=== PATIENT | female | born 1995 | race African-American/Black ===

== ENCOUNTER 2016-12-15 16:46 | Emergency (ER) | payer OTHER ==
[2016-12-15 17:04] VITALS: TEMP 98; BMI 29.5
[2016-12-15 17:23] LABS: LEUKOCYTES/URINE NEG (NEGATIVE); NITRITE/URINE NEG (NEGATIVE); RBC/URINE 0-2 (0-5); URINE OCCULT BLOOD NEG (NEG/TRACE); WBC/URINE 0-2 (0-5)
[2016-12-15] MEDS ORDERED: SODIUM CHLORIDE 0.9% 3 ML FLUSH FLUSH PRN (17:25)
[2016-12-15] MEDS ORDERED: NS 1,000 ML IV ONE ×2 (17:25)
--- NOTE | 2016-12-15 17:27 | EDPRACDOC ---
- General Information Information Source: Patient Mode Of Arrival: Car - History of Present Illness Onset: 2 days Pain Location: Reports: LLQ, Suprapubic, Flank (LT) Pain Context: Reports: Spontaneous Pain Severity: Mild Pain Quality: Reports: Aching, Sharp Pain Radiation: Reports: Flank (LT FLANK) Last Menstrual Period: now : (unk) Control Method: Reports: None Blood Type: Unknown Modifying Factors: improves with: Nothing Female Associated Signs & Symptoms: Reports: Nausea, Diarrhea (1-2 EPISODES) Oral Intake: Normal Urinary Output: Normal <Irwin Gambino - Last Filed: 12/15/16 18:03> <Valerie Bazan - Last Filed: 12/15/16 18:20> - General Information Chief Complaint: Abdominal Pain Stated Complaint: ABD PAIN Time Seen by Provider: 12/15/16 17:20 Home Medications: Home Medications Ibuprofen 800 mg PO Q8H PRN #20 tablet 12/15/16 Allergies/Adverse Reactions: Allergies Allergy/AdvReac Type Severity Reaction Status Date / Time diphenhydramine HCl Allergy Intermediate Itching Verified 12/15/16 17:00 [From Benadryl] fluoxetine HCl [From Prozac] Allergy Intermediate Itching Verified 12/15/16 17: 00 morphine Allergy Intermediate Itching Verified 12/15/16 17:00 - History of Present Illness HPI: PT PRESENTS TO ED WITH LOWER ABD PAIN VAGINAL BLEEDING FOR 2 DAYS STATES SHE HAD NORMAL MENSTRUAL CYCLE AND STOPPED NORMALLY BUT THEN STARTED BACK AND HAVING INCREASED PAIN AND NAUSEA WITH 1-2 EPISODES OF DIARRHEA. (Irwin Gambino) ED Past Medical History - History Reviewed Yes Nurses notes reviewed and agree except as marked Travel Outside of [place] in the Last 3 Months?: No No Past Medical History: Yes Patient has no past medical history - Patient Medical History Psychological History: Reports: Depression, Anxiety Systemic History: Reports: Diabetes (HYPOGLYCEMIA) Surgical History: Reports: Other (ORAL) - Social Medical History Smoking Status: Never smoker ETOH: None Substance Abuse: None Lives With: Other Lives In: Home <Irwin Gambino - Last Filed: 12/15/16 18:03> EDM Review of Systems - Review of Systems ROS Negative Except as Marked: Yes All systems reviewed and were negative except as marked Constitutional: No Symptoms Reported. negative: Fever, Chills, Weakness, Fatigue, Loss of Appetite Eyes: No Symptoms Reported. negative: Redness, Blurred Vision, Double Vision, Discharge, Pain, Light Sensitive, Photophobia Ears: No Symptoms Reported. negative: Pain, Hearing Loss, Drainage, Ear Pulling Throat: No Symptoms Reported. negative: Pain, Swelling Nose: No Symptoms Reported. negative: Congestion, Bleeding, Discharge, Injection, Swelling, Deformity, Ecchymosis, Tender, Abrasion, Laceration Mouth: No Symptoms Reported. negative: Pain, Drooling Respiratory: No Symptoms Reported. negative: Cough, Brassy Cough, Barky Cough, Shortness of Breath, Wheezing, Hemoptysis Cardiovascular: No Symptoms Reported. negative: Chest Pain, Palpitations, Syncope, Edema, Orthopnea, PND, Skin Mottling, Cyanosis Gastrointestinal: Diarrhea (1-2 EPISODES), Nausea, Pain. negative: Constipation , Formula Intolerance, Melena, Vomiting Genitourinary: Flank Pain (LEFT), Vaginal Bleeding. negative: Bleeding, Dysuria , Discharge, Frequency, Hematuria, , Testicular Pain Neurological: No Symptoms Reported. negative: Headache, Dizziness, Seizure, Numbness, Weakness, Speech Difficulty, Gait Difficulty Musculoskeletal: No Symptoms Reported. negative: Neck, Chestwall, Ribs, Back, Shoulder, Arm, Elbow, Forearm, Wrist, Hand, Pelvis, Hip, Femur, Knee, Leg, Ankle , Foot Integumentary: No Symptoms Reported. negative: Itching, Rash, Bruising, Wound Allergic/Immunologic: No Symptoms Reported. negative: Hives, Itching Hematologic: No Symptoms Reported. negative: Lymphadenopathy, Easy Bruising, Easy Bleeding Endocrine: No Symptoms Reported. negative: Weight Gain, Weight Loss Psychiatric: No Symptoms Reported. negative: Anxiety, Depression, Hallucinations, Insomnia, Suicidal <Irwin Gambino - Last Filed: 12/15/16 18:03> - Physical Exam Constitutional: No apparent distress, Alert (Awake) Oriented to: Time, Person, Place - HEENT Head: Normal ( normocephalic) Eye Exam: Normal (PERRL, EOMI, Sclera white) Oropharynx: Normal (Pharynx:Moist without exudate,Gums-no swelling) Tympanic Membrane: Normal ENT EAC: Normal TMJ: Normal Nose: No Symptoms Reported (septum midline) Neck: Normal (FROM, trachea at midline) - Respiratory/Cardiovascular Respiratory: Normal - CTA (BBS clear to auscultation without adventitious sounds ) Cardiovascular: Normal (RRR without murmur, gallop or rub) - GI Auscultation: Normal (NABS) Palpation: Normal (Soft,No rebound or guarding, non distended) Tenderness: Mild, LUQ, LLQ, Suprapubic Post's Sign: Negative - Bladder: Normal External: Normal Vagina: Blood Cervix: Blood Uterus: Normal size Adnexa: Bilateral: Normal - Musculoskeletal Back: Normal (Non-Tender) Extremities: Normal (Normal tone, Pulses 2+ No cyanosis or edema, FROM) - Integumentary Skin: Normal, Warm, Dry Lymphatics: Normal (no adenopathy) - Neurologic Memory Impaired: Normal Motor Function: Normal (Normal tone, Pulses 2+ No cyanosis or edema, FROM) Cranial Nerve: Normal (CN II-X11 intact sensation, strength 5/5) Cerebellar: Normal Mood Description: Normal Perception: Normal <Irwin Gambino - Last Filed: 12/15/16 18:03> - Differential Diagnosis UTI, Other (, CERVICITIS, DUB, PID) - Results 12/15/16 17:46 12/15/16 17:46 <Irwin Gambino - Last Filed: 12/15/16 18:03> - Re-evaluation Re-evaluation 1 Re-evaluation Time: 18:18 (IMPROVED) - Results 12/15/16 17:46 12/15/16 17:46 <Valerie Bazan - Last Filed: 12/15/16 18:20> - Results WBC 10.1 xk/uL (3.8-10.8) 12/15/16 17:46 RBC 4.17 xM/uL (4.20-5.40) L 12/15/16 17:46 Hgb 12.5 g/dL (12.0-16.0) 12/15/16 17:46 Hct 37.1 % (36-47) 12/15/16 17:46 MCV 89 fL (81-99) 12/15/16 17:46 MCH 29.9 pg (27-32) 12/15/16 17:46 MCHC 33.6 g/dl (33-36) 12/15/16 17:46 RDW 13.5 % (11.5-14.5) 12/15/16 17:46 Plt Count 291 xk/uL (130-400) 12/15/16 17:46 MPV 9.9 fL (7.4-10.4) 12/15/16 17:46 Neut % (Auto) 60.3 % (45-76) 12/15/16 17:46 Lymph % (Auto) 31.5 % (17-44) 12/15/16 17:46 [place] % (Auto) 6.3 % (3-10) 12/15/16 17:46 Eos % (Auto) 0.5 % (0-5) 12/15/16 17:46 Baso % (Auto) 1.4 % (0-2) 12/15/16 17:46 Absolute Neuts (auto) 6.06 xk/uL (1.7-8.2) 12/15/16 17:46 Absolute Lymphs (auto) 3.13 xk/uL (0.65-4.75) 12/15/16 17:46 Sodium 139 mEq/L (137-146) 12/15/16 17:46 Potassium 3.7 mEq/L (3.5-5.1) 12/15/16 17:46 Chloride 101 mEq/L (98-107) 12/15/16 17:46 Carbon Dioxide 29 mMOL/L (22-33) 12/15/16 17:46 Anion Gap 13 mEq/L (8-16) 12/15/16 17:46 BUN 16 MG/DL (7-17) 12/15/16 17:46 Creatinine 0.80 MG/DL (0.52-1.04) 12/15/16 17:46 Estimated GFR (MDRD) > 60 mL/min (>=60) 12/15/16 17:46 Glucose 91 mg/dL (70-99) 12/15/16 17:46 Calculated Osmolality 269 MOs/Kg (270-290) L 12/15/16 17:46 Calcium 9.0 MG/DL (8.4-10.2) 12/15/16 17:46 Total Bilirubin 0.3 MG/DL (0.2-1.3) 12/15/16 17:46 AST 24 IU/L (14-36) 12/15/16 17:46 ALT 24 IU/L (9-52) 12/15/16 17:46 Alkaline Phosphatase 97 IU/L (38-126) 12/15/16 17:46 Total Protein 7.9 G/DL (6.3-8.2) 12/15/16 17:46 Albumin 4.4 G/DL (3.5-5.0) 12/15/16 17:46 Urine Color Yellow 12/15/16 17:05 Urine Clarity Clear 12/15/16 17:05 Urine pH 7.0 (5.0-8.0) 12/15/16 17:05 Ur Specific [place] 1.015 (1.003-1.035) 12/15/16 17:05 Urine Protein Neg (NEG/TRACE) 12/15/16 17:05 Urine Glucose (UA) Neg (NEGATIVE) 12/15/16 17:05 Urine Ketones Neg (NEGATIVE) 12/15/16 17:05 Urine Occult Blood Neg (NEG/TRACE) 12/15/16 17:05 Urine Nitrite Neg (NEGATIVE) 12/15/16 17:05 Urine Bilirubin Neg (NEGATIVE) 12/15/16 17:05 Urine Urobilinogen <2.0 MG/DL (0-1) 12/15/16 17:05 Ur Leukocyte Esterase Neg (NEGATIVE) 12/15/16 17:05 Urine RBC 0-2 (0-5) 12/15/16 17:05 Urine WBC 0-2 (0-5) 12/15/16 17:05 Ur Epithelial Cells 1+ 12/15/16 17:05 Urine Bacteria Few (NEG/FEW) 12/15/16 17:05 Urine Mucus Occ (NEG/OCC) 12/15/16 17:05 Urine Test Neg (NEGATIVE) 12/15/16 17:05 Microbiology 12/15/16 17:35 YANIRA Preparation - Final Vaginal 12/15/16 17:35 Trichomonas Wet Mount - Final Vaginal Lab Results 12/15/16 12/15/16 12/15/16 17:46 17:46 17:05 WBC 10.1 RBC 4.17 L Hgb 12.5 Hct 37.1 MCV 89 MCH 29.9 MCHC 33.6 RDW 13.5 Plt Count 291 MPV 9.9 Neut % (Auto) 60.3 Lymph % (Auto) 31.5 [place] % (Auto) 6.3 Eos % (Auto) 0.5 Baso % (Auto) 1.4 Absolute Neuts (auto) 6.06 Absolute Lymphs (auto) 3.13 Sodium 139 Potassium 3.7 Chloride 101 Carbon Dioxide 29 Anion Gap 13 BUN 16 Creatinine 0.80 Estimated GFR (MDRD) > 60 Glucose 91 Calculated Osmolality 269 L Calcium 9.0 Total Bilirubin 0.3 AST 24 ALT 24 Alkaline Phosphatase 97 Total Protein 7.9 Albumin 4.4 Urine Color Yellow Urine Clarity Clear Urine pH 7.0 Ur Specific [place] 1.015 Urine Protein Neg Urine Glucose (UA) Neg Urine Ketones Neg Urine Occult Blood Neg Urine Nitrite Neg Urine Bilirubin Neg Urine Urobilinogen <2.0 Ur Leukocyte Esterase Neg Urine RBC 0-2 Urine WBC 0-2 Ur Epithelial Cells 1+ Urine Bacteria Few Urine Mucus Occ Urine Test 12/15/16 17:05 WBC RBC Hgb Hct MCV MCH MCHC RDW Plt Count MPV Neut % (Auto) Lymph % (Auto) [place] % (Auto) Eos % (Auto) Baso % (Auto) Absolute Neuts (auto) Absolute Lymphs (auto) Sodium Potassium Chloride Carbon Dioxide Anion Gap BUN Creatinine Estimated GFR (MDRD) Glucose Calculated Osmolality Calcium Total Bilirubin AST ALT Alkaline Phosphatase Total Protein Albumin Urine Color Urine Clarity Urine pH Ur Specific [place] Urine Protein Urine Glucose (UA) Urine Ketones Urine Occult Blood Urine Nitrite Urine Bilirubin Urine Urobilinogen Ur Leukocyte Esterase Urine RBC Urine WBC Ur Epithelial Cells Urine Bacteria Urine Mucus Urine Test Neg (Irwin Gambino) (Valerie Bazan) - Departure Disposition: Home Education/Counseling Given To: Patient Education/Counseling Given Regarding: Diagnosis, Treatment, Prognosis, Follow Up <Irwin Gambino - Last Filed: 12/15/16 18:03> Decision Time to Discharge: 18:18 - Departure Yes I personally saw and evaluated the patient. <Valerie Bzaan - Last Filed: 12/15/16 18:20> - Departure Condition: Stable Final Diagnosis: Vaginal bleeding, Menorrhagia Instructions: Menorrhagia (ED) Referrals: Rusty Delgado MD [Staff Physician] - One Week None,No Provider [Primary Care Provider] - One Week Prescriptions: New Ibuprofen 800 mg PO Q8H PRN #20 tablet PRN Reason: Pain
[2016-12-15 17:58] LABS: AUTOMATED BASOPHIL 1.4 % (0-2); AUTOMATED EOSINOPHIL 0.5 % (0-5); AUTOMATED LYMPH 31.5 % (17-44); AUTOMATED MONOCYTE 6.3 % (3-10); AUTOMATED NEUTROPHIL 60.3 % (45-76); MPV 9.9 fL (7.4-10.4)
[2016-12-15] MEDS ORDERED: SODIUM CHLORIDE 0.9% 3 ML FLUSH FLUSH SCH (18:00)
[2016-12-15 18:07] LABS: BLOOD UREA NITROGEN 16 MG/DL (7-17); CALCULATED OSMOLALITY 269 MOs/Kg (270-290); CHLORIDE 101 mEq/L (98-107); GLUCOSE 91 mg/dL (70-99); SODIUM LEVEL 139 mEq/L (137-146); TOTAL PROTEIN 7.9 G/DL (6.3-8.2)
[2016-12-15 18:55] VITALS: BP 131/67; PULSE 78
[2016-12-16 21:41] LABS: CHLAMY BY NUCLEIC ACID AMP Negative (Negative)
[2016-12-17 08:32] LABS: GC BY NUCLEIC ACID AMP Negative (Negative)
== END 2016-12-15 18:57 | disposition home or self-care (01) ==
LOC: ED 16:46
DX: N92.0 Excessive and frequent menstruation with regular cycle (principal)
CPT/HCPCS: 36415; 80053; 81001; 81025; 85025; 87210; 87220; 87491; 87591; 99284